=== PATIENT | male | born 1990 | race African-American/Black ===

== ENCOUNTER → 2017-08-25 | Outpatient (CLI) | payer OTHER, BC ==
--- NOTE | 2017-08-25 10:10 | Diagnostic Imaging Report ---
PROCEDURE: MRI right joint lower extremity without contrast. TECHNIQUE: Multiplanar, multisequence non contrast-enhanced MRI of the right lower extremity was accomplished. INDICATION: Right knee pain after injury. FINDINGS: There is a moderate joint effusion. The extensor mechanism demonstrate thickening and increased signal in the distal patellar tendon with associated ossification. This is suggestive of an old injury. No full-thickness or retracted tear. There is no evidence of intact ACL fibers compatible with a full-thickness tear. There is a deep lateral femoral condyle notch, a focal cortical depression that is often associated with ACL injury. The bone marrow signal however at this time demonstrates only mild contusion in favor of a subacute injury. The PCL is intact. There is suggestion of a bucket-handle tear of the medial meniscus with displacement of the meniscus material into the intercondylar notch. The lateral meniscus demonstrates a horizontal tear in the body of the meniscus extending to the anterior horn. The MCL and lateral collateral ligament complex appear intact. The articular cartilage is generally intact except for focal depression along the undersurface of the lateral femoral condyle focal cortical depression injury described above. There is no popliteal cyst. There is however joint edema around the capsule posteriorly and suggestion of a ganglion cyst measuring 1.1 x 0.8 x 1.3 cm abutting the posterior capsule. IMPRESSION: 1. Full-thickness ACL tear. 2. Displaced bucket-handle tear of the medial meniscus. 3. Horizontal nondisplaced tear of the body and anterior horn of the lateral meniscus. 4. Ganglion cyst measuring 1.3 CM abutting the posterior knee joint capsule. 5. The subacute focal cortical depressed fracture along the lateral femoral condyle. 6. Evidence of old injury to the distal patellar tendon. Report was faxed to office of Dr. Rasmussen by [facility] at 10:08 AM. Dictated by: Dictated on workstation # [id number]
== END ==
LOC: RAD 08:04
PROVIDERS: ATTEND Orthopaedic Surgery
DX: S83.211A Bucket-handle tear of medial meniscus, current injury, right knee, initial encounter (principal); S83.281A Other tear of lateral meniscus, current injury, right knee, initial encounter; S83.511A Sprain of anterior cruciate ligament of right knee, initial encounter; S72.421A Displaced fracture of lateral condyle of right femur, initial encounter for closed fracture; M67.461 Ganglion, right knee; X58.XXXA Exposure to other specified factors, initial encounter; Y99.8 Other external cause status
CPT/HCPCS: 73721

== ENCOUNTER 2017-09-17 21:41 | Emergency (ER) | payer OTHER, BC ==
[~2017-09-17] VITALS: Ht 193 cm; Wt 115.7 kg
[2017-09-17 22:23] LABS: BASOPHILS # (AUTO) 0.1 10^3/uL (0.0-0.1); BASOPHILS % (AUTO) 0 % (0-10); EOSINOPHILS # (AUTO) 0.2 10^3/uL (0.0-0.3); EOSINOPHILS % (AUTO) 2 % (0-10); LYMPHOCYTES # (AUTO) 3.9 X 10^3 (1.0-4.0); LYMPHOCYTES % (AUTO) 34 % (12-44); MEAN CORPUSCULAR HEMOGLOBIN 28 PG (25-34); MEAN CORPUSCULAR HGB CONC 33 G/DL (32-36); MEAN CORPUSCULAR VOLUME 85 FL (80-99); MEAN PLATELET VOLUME 9.2 FL (7.4-10.4); MONOCYTES % (AUTO) 9 % (0-12); NEUTROPHILS # (AUTO) 6.2 X 10^3 (1.8-7.8); NEUTROPHILS % (AUTO) 55 % (42-75); PLATELET COUNT 381 10^3/uL (130-400); RED BLOOD COUNT 4.65 10^6/uL (4.35-5.85); RED CELL DISTRIBUTION WIDTH 12.1 % (10.0-14.5); WHITE BLOOD COUNT 11.3 10^3/uL (4.3-11.0)
[2017-09-17 22:38] LABS: ANION GAP 13 MMOL/L (5-14); BLOOD UREA NITROGEN 15 MG/DL (7-18); BUN/CREATININE RATIO 15; CALCIUM 9.8 MG/DL (8.5-10.1); CARBON DIOXIDE 25 MMOL/L (21-32); CHLORIDE 103 MMOL/L (98-107); CREATININE SERUM 0.98 MG/DL (0.60-1.30); GFR ESTIMATED > 60; GLUCOSE 116 MG/DL (70-105); POTASSIUM 3.5 MMOL/L (3.6-5.0); SODIUM 141 MMOL/L (135-145); hs C REACTIVE PROTEIN 6.28 MG/DL (0.00-0.50)
[2017-09-18] MEDS ORDERED: VANCOMYCIN INJECTION 1,000 MG in NS (IVPB) 250 ML IV ONE (00:15)
[2017-09-18] MEDS ORDERED: cefTRIAXone 1 GM (ROCEPHIN) VIAL ONE (00:24)
[2017-09-18] MEDS ORDERED: NS (IVPB) 50 ML ONE (00:24)
[2017-09-18] MEDS ORDERED: cefTRIAXone INJECTION 1,000 MG in NS (IVPB) 50 ML IV ONE (00:30)
[2017-09-18] MEDS ORDERED: SULF1TAB35 PO (01:48)
[2017-09-18] MEDS ORDERED: DOXY100T2 PO (01:48)
--- NOTE | 2017-09-18 01:48 | ED Lower Extremity ---
General Chief Complaint: Lower Extremity Stated Complaint: RIGHT LEG PAIN AFTER SURGERY;FEVER Nursing Triage Note: PT HERE WITH C/O R LEG SWELLING, HOT TO TOUCH, PAIN AFTER ACL REPAIR ON 08/31/17. Nursing Sepsis Screen: No Definite Risk Source: patient Exam Limitations: no limitations History of Present Illness Time seen by provider: 22:04 Initial Comments This 26-year-old young man presents to emergency room with complaints of increasing pain in his right knee and lower leg after having anterior cruciate ligament repair. His surgery was on September 08. He reports worsening pain, swelling, heat, and tenderness since September 14. He had subjective fever earlier in the week. There is no drainage from the op site. He is concerned he may have a DVT. Allergies and Home Medications Allergies Coded Allergies: No Known Drug Allergies (Unverified , 09/17/17) Home Medications Doxycycline Hyclate 100 Mg Tablet, 100 MG PO BID, #20 Prescribed by: BEATRIZ TUCKER on 09/18/17 0148 Sulfamethoxazole/Trimethoprim 1 Each Tablet, 1 EACH PO BID, #20 Prescribed by: BEATRIZ TUCKER on 09/18/17 0148 Constitutional: see HPI EENTM: no symptoms reported Respiratory: no symptoms reported Cardiovascular: no symptoms reported Gastrointestinal: no symptoms reported Genitourinary: no symptoms reported Musculoskeletal: see HPI Skin: see HPI Psychiatric/Neurological: No Symptoms Reported Past Cvsskjv-[id number]-Pphbzn Hx Patient Social History Recent Foreign Travel: No Contact w/Someone Who Travel: No Recent Infectious Disease Expo: No Recent Hopitalizations: No Seasonal Allergies Seasonal Allergies: No Surgeries History of Surgeries: Yes (ACL BILAT) Surgeries: Orthopedic Respiratory History of Respiratory Disorde: No Cardiovascular History of Cardiac Disorders: No Neurological History of Neurological Disord: No Reproductive System Hx Reproductive Disorders: No Genitourinary History of Genitourinary Disor: No Gastrointestinal History of Gastrointestinal Di: No Musculoskeletal History of Musculoskeletal Dis: No Endocrine History of Endocrine Disorders: No HEENT History of HEENT Disorders: No Cancer History of Cancer: No Psychosocial History of Psychiatric Problem: No Integumentary History of Skin or Integumenta: No Blood Transfusions History of Blood Disorders: No Adverse Reaction to a Blood Tr: No Physical Exam Vital Signs Vital Sign - Last 12Hours 09/17/17 21:54 Temp 98.7 Pulse 80 Resp 18 B/P (MAP) 131/78 (95) Pulse Ox 97 O2 Delivery Room Air Capillary Refill : Less Than 3 Seconds General Appearance: WD/WN, no apparent distress HEENT: PERRL/EOMI, normal ENT inspection Cardiovascular: regular rate, rhythm, no edema, no murmur Respiratory: lungs clear, normal breath sounds, no respiratory distress, no accessory muscle use Knees: right knee pain, right knee soft tissue tenderness, right knee swelling , right knee other (there is heat, erythema, and swelling that seems focused around the small medial and inferior incision.) Neurologic/Tendon: normal sensation Neurologic/Psychiatric: 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, no motor/sensory deficits, alert, normal mood/affect, oriented x 3 Skin: normal color, warm/dry Progress/Results/Core Measures Results/Orders Lab Results Laboratory Tests Test 09/17/17 22:10 Range/Units White Blood Count 11.3 H 4.3-11.0 10^3/uL Red Blood Count 4.65 4.35-5.85 10^6/uL Hemoglobin 13.1 L 13.3-17.7 G/DL Hematocrit 39 L 40-54 % Mean Corpuscular Volume 85 80-99 FL Mean Corpuscular Hemoglobin 28 25-34 PG Mean Corpuscular Hemoglobin Concent 33 32-36 G/DL Red Cell Distribution Width 12.1 10.0-14.5 % Platelet Count 381 130-400 10^3/uL Mean Platelet Volume 9.2 7.4-10.4 FL Neutrophils (%) (Auto) 55 42-75 % Lymphocytes (%) (Auto) 34 12-44 % Monocytes (%) (Auto) 9 0-12 % Eosinophils (%) (Auto) 2 0-10 % Basophils (%) (Auto) 0 0-10 % Neutrophils # (Auto) 6.2 1.8-7.8 X 10^3 Lymphocytes # (Auto) 3.9 1.0-4.0 X 10^3 Monocytes # (Auto) 1.0 0.0-1.0 X 10^3 Eosinophils # (Auto) 0.2 0.0-0.3 10^3/uL Basophils # (Auto) 0.1 0.0-0.1 10^3/uL Sodium Level 141 135-145 MMOL/L Potassium Level 3.5 L 3.6-5.0 MMOL/L Chloride Level 103 98-107 MMOL/L Carbon Dioxide Level 25 21-32 MMOL/L Anion Gap 13 5-14 MMOL/L Blood Urea Nitrogen 15 7-18 MG/DL Creatinine 0.98 0.60-1.30 MG/DL Estimat Glomerular Filtration Rate > 60 BUN/Creatinine Ratio 15 Glucose Level 116 H 70-105 MG/DL Lactic Acid Level 1.36 0.50-2.00 MMOL/L Calcium Level 9.8 8.5-10.1 MG/DL C-Reactive Protein High Sensitivity 6.28 H 0.00-0.50 MG/DL My Orders Orders - BEATRIZ THAPA MD Basic Metabolic Panel (09/17/17 22:04) Cbc With Automated Diff (09/17/17 22:04) Hs C Reactive Protein (09/17/17 22:04) Saline Lock/Iv-Start (09/17/17 22:04) Us Venous Lower Ext Rt (09/17/17 22:38) Blood Culture (09/18/17 00:10) Lactic Acid Analyzer (09/18/17 00:10) Vancomycin Injection (Vancomycin Injecti (09/18/17 00:15) Ceftriaxone Injection (Rocephin Injectio (09/18/17 00:24) Ns (Ivpb) (Sodium Chloride 0.9% Ivpb Bag (09/18/17 00:24) Ceftriaxone Injection (Rocephin Injectio (09/18/17 00:30) Medications Given in ED Current Medications Medications Dose Ordered Sig/[place] Route Start Time Stop Time Status Last Admin Dose Admin Ceftriaxone Sodium 1000 mg/ Sodium Chloride 50 ml @ 100 mls/hr ONCE ONCE IV 09/18/17 00:30 09/18/17 00:59 DC 09/18/17 00:32 100 MLS/HR Vancomycin HCl 1000 mg/Sodium Chloride 250 ml @ 250 mls/hr ONCE ONCE IV 09/18/17 00:15 09/18/17 01:14 DC 09/18/17 00:54 250 MLS/HR Vital Signs/I&O Vital Sign - Last 12Hours 09/17/17 09/18/17 21:54 01:58 Temp 98.7 99.1 Pulse 80 82 Resp 18 18 B/P (MAP) 131/78 (95) Pulse Ox 97 99 O2 Delivery Room Air Room Air Blood Pressure Mean: 95 Progress Note : Progress Note Patient was found to have an elevated CRP and WBC suggesting infection. There was no evidence of DVT on ultrasound. Case was discussed with Dr. Renee who believes patient likely has an infected hematoma. He agrees with doses of IV antibiotics including Rocephin and vancomycin tonight followed by oral antibiotics. He will see the patient at 10:00 in his office tomorrow. Patient is agreeable to plan. Diagnostic Imaging Diagonstic Imaging: Ultrasound Plain Films/CT/US/NM/MRI: leg Comments Venous ultrasound of the right leg demonstrated no DVT. There was a hematoma versus seroma versus abscess noted around the inflamed incision measuring greater than 5 cm in the largest dimension. Departure Impression Impression: Primary Impression: Surgical wound infection Qualified Codes: T81.4XXA - Infection following a procedure, initial encounter Disposition: HOME, SELF-CARE Condition: Improved Departure-Patient Inst. Decision time for Depature: 00:15 Referrals: NO,LOCAL PHYSICIAN (PCP/Family) Primary Care Physician Patient Instructions: Cellulitis (Skin Infection), Adult (DC) Add. Discharge Instructions: Elevate your knee as much as possible. Continue with your pain medication as previously prescribed. See Dr. Renee in his office at 09:30 this morning. Return to care promptly if symptoms worsen, especially if you develop fevers greater than 100. Complete your antibiotics as prescribed. All discharge instructions reviewed with patient and/or family. Voiced understanding. Scripts Doxycycline Hyclate (Doxycycline Hyclate) 100 Mg Tablet 100 MG PO BID, #20 TAB Prov: BEATRIZ THAPA MD 09/18/17 Sulfamethoxazole/Trimethoprim (Bactrim Ds Tablet) 1 Each Tablet 1 EACH PO BID, #20 TAB Prov: BEATRIZ THAPA MD 09/18/17 Copy Copies To 1: PATRICIA RENEE MD, JOSHUA T MD Sep 18, 2017 01:48
[2017-09-18 01:58] VITALS: BP 132/96
--- NOTE | 2017-09-18 06:52 | Diagnostic Imaging Report ---
INDICATION: Right leg pain, swelling, fever. Post recent knee surgery. TECHNIQUE: Grayscale with color-flow and Doppler waveform evaluation of the right lower extremity deep venous system. CORRELATION STUDY: None. FINDINGS: Color and grayscale sonographic images demonstrate no intraluminal defect within the visualized portion of the common femoral, superficial femoral, and/or popliteal veins to suggest thrombus formation. These vessels demonstrate normal response to compression and augmentation. Deep to reported anterior and medial scar/incision is a heterogeneous fluid collection. This measures approximately 5.8 x 2.2 x 5.4 cm. IMPRESSION: 1. Negative for deep venous thrombosis of the right leg. 2. Fluid collection deep to an anterior medial scar/incision. Findings nonspecific, could reflect seroma, hematoma, or abscess. A preliminary report was provided by [employer]. Dictated by: Dictated on workstation # [id number]
== END 2017-09-18 01:58 | disposition home or self-care (01) ==
LOC: EDUNIT# 21:41 → ER 21:42
DX: T81.4XXA Infection following a procedure, initial encounter (principal); M79.604 Pain in right leg; Z98.890 Other specified postprocedural states
CPT/HCPCS: 36415; 80048; 83605; 85025; 86141; 87040